=== PATIENT | male | born 1975 | race Caucasian/White ===

== ENCOUNTER 2025-01-18 14:07 | Emergency (ER) | payer MEDICAID ==
[~2025-01-18] VITALS: Ht 172.7 cm; Wt 90.0 kg
[~2025-01-18 14:07] MED LIST: CHLO25CA10 MT; FOLI-43 PO; GABA-1180 PO; MULT-1146 MT; NALT50TA6 PO; OMEP40CA20 PO; THIA100T72 PO
[2025-01-18 14:17] VITALS: O2SAT 97
[2025-01-18 14:18] VITALS: BP 136/106; PULSE 105; RESP 16; TEMP 36.8; O2SAT 96
[2025-01-18] MEDS: CHLORDIAZEPOXIDE 25MG CAPSULE PO ONE (17:58)
[2025-01-18 18:02] LABS: BASOPHILS % 1.1 % (0.0-2.0); EOSINOPHILS % 0.7 % (0.0-5.0); HEMATOCRIT. 42.6 % (42.0-52.0); HEMOGLOBIN. 14.6 g/dL (14.0-18.0); LYMPHOCYTES % 30.7 % (20.0-50.0); MEAN CORPUSCULAR HEMOGLOBIN 33.2 pg (28.0-32.0); MEAN CORPUSCULAR HGB CONC 34.3 g/dL (31.0-37.0); MEAN CORPUSCULAR VOLUME 96.8 fL (80.0-94.0); MEAN PLATELET VOLUME 8.7 fl (7.4-10.4); MONOCYTES % 8.3 % (2.0-8.0); NEUTROPHILS % 59.2 % (40.0-76.0); PLATELET 117 x1000/uL (130-400); RED CELL DISTRIBUTION WIDTH 13.8 % (11.6-14.6); WHITE BLOOD COUNT 4.4 x1000/uL (4.5-11.0)
[2025-01-18 18:06] LABS: CHLORIDE 99 mEq/L (98-107); POTASSIUM 3.6 mEq/L (3.5-5.1); SODIUM 136 mEq/L (136-145)
[2025-01-18 18:07] LABS: CALCIUM 9.9 mg/dL (8.7-10.4); CARBON DIOXIDE 24 mEq/L (21-32)
[2025-01-18 18:12] LABS: CREATININE 0.8 mg/dL (0.6-1.3); GLUCOSE 135 mg/dL (70-105); UREA NITROGEN BLOOD 11 mg/dL (9-23)
[2025-01-18 18:13] LABS: ETHANOL BLOOD 260 mg/dL (<10)
[2025-01-18 18:14] LABS: ALANINE AMINOTRANSFERASE 88 IU/L (10-49); ALBUMIN 4.3 g/dL (3.2-4.8); ASPARTATE AMINOTRANSFERASE 177 IU/L (<34); BILIRUBIN DIRECT 0.4 mg/dL (<=3.0)
[2025-01-18 18:15] LABS: PHOSPHORUS 2.6 mg/dL (2.5-4.9); PROTEIN TOTAL 7.8 g/dL (6.0-8.3)
[2025-01-18] MEDS ORDERED: CHLO25CA10 MT (18:26)
[2025-01-18] MEDS ORDERED: ONDA-239 PO (18:26)
== END 2025-01-18 18:44 | disposition home or self-care (01) ==
LOC: ER 14:07
DX: F10.129 Alcohol abuse with intoxication, unspecified (principal); Z79.899 Other long term (current) drug therapy; Y90.8 Blood alcohol level of 240 mg/100 ml or more
CPT/HCPCS: 36415; 80048; 80076; 80320; 83735; 84100; 85025; 99283; G0480